=== PATIENT | female | born 1935 | race Caucasian/White ===

== ENCOUNTER → 2019-05-09 11:10 | Outpatient (CLI) | payer MEDICARE, OTHER, SELFPAY | PROVIDERS: Visit Provider Orthopaedic Surgery | DX: Z01.818 Encounter for other preprocedural examination (principal) | CPT/HCPCS: 93005; 93010 ==

== ENCOUNTER 2019-05-26 08:36 | Day surgery (SDC) | payer MEDICARE, OTHER, SELFPAY ==
[2019-05-13 08:57] VITALS: BMI 33.9
[2019-05-26] VITALS (14 sets, daily range): BP systolic 101–149; BP diastolic 44–69; PULSE 47–87; RESP 12–18; TEMP 36.4–37.2; O2SAT 93–98; BMI 33.6
--- NOTE | 2019-05-26 07:00 | DI.RAD.S_ITS ---
PROCEDURE: XR KNEE RT 1TO2V INDICATIONS: post op films TECHNIQUE: 2 view(s) of the knee acquired. COMPARISON: None. FINDINGS: Bones: Patient is status post knee joint arthroplasty. Hardware components are in expected positions. Visualized bony structures are intact. Soft tissues: Overlying postoperative changes are noted. IMPRESSION: Unexpected immediately postoperative appearance, status post total right knee arthroplasty Dictated by: Richard Campos M.D. on 05/26/2019 at 13:09 Approved by: Richard Campos M.D. on 05/26/2019 at 13:10
[2019-05-26] MEDS: ACETAMINOPHEN 325 MG TABLET 975 MG PO ×2 (09:33→20:48)
[2019-05-26] MEDS: PREGABALIN 75 MG CAPSULE PO (09:34)
[2019-05-26] MEDS: CELECOXIB 200 MG CAPSULE PO (09:34)
[2019-05-26] MEDS: LACTATED RINGERS 1,000 ML 42 ML IV ×2 (09:35→11:59)
--- NOTE | 2019-05-26 10:05 | PM.PREOP ---
Pre-operative Note Interval Note History & Physical reviewed/Exam performed by Physician: Yes Changes to H&P: No
[2019-05-26] MEDS: CEFAZOLIN 2 GM/100 ML FROZ.PIGGY IV (10:38)
--- NOTE | 2019-05-26 10:53 | P.OP_ITS ---
Operative Date/Time/Diagnoses Date of procedure: 05/26/19 Time of procedure: 12:15 Pre-op diagnosis: Right knee osteoarthritis Post-op diagnosis: same Procedure & Clinicians Procedure: Right total knee replacement Same procedure as scheduled: Yes Indications: The patient has had progressively worsening right knee pain with radiographic changes consistent with arthritis. Non-operative management has failed and the patient has requested total knee replacement. The risks, benefits and alternatives to surgery were discussed with the patient prior to proceeding. Risks discussed included, but were not limited to, failure to relieve pain, stiffness, infection, nerve damage, deep venous thrombosis, pulmonary embolism, stroke, coma, heart attack, permanent paralysis and , as well as the potential need for eventual revision of the prosthetic. Surgeon: Edd Davis Electronics Department Manager: Lucho Mehta Click Yes if Unassisted: No Anesthesia Type: General, Spinal and Local Operative Notes Closure Type: primary Specimen(s): none sent Prosthetic devices, grafts, tissues, transplants, or devices: Implants used in this procedure were manufactured by the [employer] system master and [employer] and included the BCS II Journey total knee replacement with a size 6 right cobalt chromium femur, a size 4 right non porous tibial base plate, a 10 mm cross- linked polyethylene tibial insert and a 35 mm oval Mary II patellar component. Applied: implant(s) Estimated Blood Loss (mL): 25 Blood products transfused: none Tourniquet time (min): 46 Procedure in detail: The patient was seen in the pre-operative area, where the patient identified the right knee as the operative site and this was marked with my initials. The patient received pre-operative antibiotics, and was taken to the operating room and placed on the operative table in the supine position. After satisfactory anesthesia, a real time analyst out was performed. The right leg was encircled with a tourniquet about the proximal thigh, and the leg was prepared from the toes to the tourniquet with ChloroPrep in the usual fashion and draped through sterile drapes. The leg was elevated and exsanguinated with Eschmark bandage and the tourniquet inflated to 250 mmHg pressure. The knee was approached through an approximately 18 cm incision centered over the patella and carried into the knee through a medial parapatellar arthrotomy. The anterior osteophytes and soft tissues were removed. The rotational landmarks of [place]'s line and the transepicondylar axis were marked on the femur with electrocautery, and intramedullary guide holes for the femur and tibia were created. The distal femoral cut was made in 6 degrees of valgus using the intramedullary guide at the primary cut setting. The proximal tibial cut was then made using the intramedullary guide, taking 9 mm of bone off the less involved side. The extension gap was checked and the rotation of the femoral component confirmed with the gap balancing system. The anterior, posterior and chamfer cuts were then made. The posterior osteophytes and soft tissues were then removed. The posterior capsule was injected with part of a mixture of 60 ml 0.25% Marcaine mixed with 20 ml Exparel and 4 mg of morphine for post-operative pain control. The remainder of this mixture was injected into the capsule and subcutaneous tissues during cement curing. The tibia was prepared with the rotation set by an extra medullary guide. Trial tibial and femoral components were then placed and the intercondylar notch cut through the femoral trial. Range of motion was 0-135 degrees, with good stability throughout the range. The patella was then cut to accommodate the patellar prosthetic. There was no need for a lateral release. The trials were then removed, and the femoral hole plugged with a bone plug. The bone was prepared with pulsatile lavage, and dried with a sponge. Cement was applied and the final prosthetics placed. Excess cement was removed during and after cement curing. After confirming there was no extruded cement posteriorly, the final tibial insert was placed. The knee was copiously irrigated and the tourniquet deflated. Hemostasis was obtained. The capsule was closed with interrupted # 2 polyester suture. The subcutaneous layer was closed with 3-0 Vicryl, and the skin with a running 3-0 V-Lock suture and SteriStrips. An Aquacel Ag dressing was applied and the patient was taken to recovery having tolerated the procedure well. Complications: none Condition: stable Disposition: PACU Plan for aftercare: The patient will be maintained on a standard total knee replacement protocol with weight bearing as tolerated. The patient will receive aspirin and sequential compression devices for DVT prophylaxis. The patient will be discharged home when safe for the home environment.
[2019-05-26] MEDS: TRANEXAMIC ACID 1,000 MG VIAL 1000 MG INJ (11:10)
--- NOTE | 2019-05-26 11:28 | SUR.OPER ---
Supine on padded OR bed. Pillow under head, arms secured on padded armboards <90 degree abduction. Safety belt across torso. Non-operative leg secured with tape over blanket over lower leg. Operative leg secured in DeMayo/Drew positioner. Foam padded brace at thigh of operative leg.
[2019-05-26] MEDS: MORPHINE 4 MG/ML INJ INJ (11:38)
[2019-05-26] MEDS: BUPIVACAINE LIPOSOME 266 MG/20 ML VIAL INJ (11:39)
[2019-05-26] MEDS: BUPIVACAINE 0.25% W/ EPI 30 ML VIAL 60 ML INJ (11:39)
--- NOTE | 2019-05-26 13:30 | PC.ADMIT ---
Admission Note: Pt arrived from PACU to room 213 at 1320. Alert and oriented x3. Oxygens sats 95% on RA. Aquacel dressing to right knee under GRETCHEN wrap C/D/I. Denies pain. Strong pulses bilaterally to feet. Able to move both extremities and partially lift off bed, can wiggle toes. Reports decreased sensation up to thighs. Oriented to call light/tv/bed controls. Instructed on need to use call light prior to getting out of bed and she acknowledged understanding. Call light within reach, bed alarm on. Cont. pulse oximetry in place. Denies need to void at this time. Taking in water without issue, denies nausea. The patient,Hollie Davis,83 y/o, was given written information regarding hospital policies, unit procedures and contact persons. Patient's smoking status: Former smoker. Vital Signs - 8 hr 05/26/19 08:59 05/26/19 12:25 05/26/19 12:30 Temperature 98.4 F 98.1 F 99 F Pulse Rate 62 87 81 Respiratory Rate 16 15 12 Blood Pressure 146/66 H 122/49 L 132/50 L Pulse Oximetry 95 95 93 05/26/19 12:35 05/26/19 12:45 05/26/19 12:55 Temperature 99 F 98.7 F 98.7 F Pulse Rate 80 72 70 Respiratory Rate 12 12 13 Blood Pressure 130/55 L 134/47 L 120/45 L Pulse Oximetry 93 95 95 05/26/19 13:05 Temperature 98.7 F Pulse Rate 63 Respiratory Rate 12 Blood Pressure 115/56 L Pulse Oximetry 95
[2019-05-26] MEDS: LACTATED RINGERS 1,000 ML 125 ML IV ×2 (14:10→22:06)
[2019-05-26] MEDS: DOCUSATE 100 MG CAPSULE PO (20:46)
[2019-05-26] MEDS: ASPIRIN EC 81 MG TABLET PO (20:46)
--- NOTE | 2019-05-26 23:56 | PC.NURSE ---
Addendum entered by Agata Florentino R.N. 05/27/19 06:25: Continues to deny all but mild pain. Declines pain med stating I'll let you know when I need something. IVF stopped as per MD order. Original Note: Patient is alert and oriented. Breath sounds CTA with RA sat of 94%; on continuous oximetry x 12h per epidural orders. HRR but bradycardic at 48 bpm. Denies nausea. BT hypoactive but abdomen is soft and states she has passed some flatus. Has been voiding using bedpan; denies dysuria or urgency but states she has been going frequently (earlier incontinence related to loss of sensation from epidural; now resolved). Able to turn with assistance to place pillows. Dressing (isra + Aquacel) to right knee is CDI. Wearing bilateral SCD's. CMS intact bilateral feet. States starting to have pain but not wanting to rate severity so stated I'll tell you like I told the others and say it's a 5; declines pain med but did accept ice packs to knee. Fall risk score is moderate and bed alarm activated for night; denies any previous falls.
[2019-05-27 05:47] VITALS: BP 108/68; PULSE 50; RESP 16; TEMP 36.3; O2SAT 95
[2019-05-27] MEDS: LEVOTHYROXINE 75 MCG TABLET PO (06:14)
[2019-05-27 06:39] LABS: Hematocrit 41.1 % (36-46); Hemoglobin 13.3 g/dL (12.0-16.0)
[2019-05-27 07:00] VITALS: BP 114/54; PULSE 50; RESP 16; TEMP 36.6; O2SAT 95
--- NOTE | 2019-05-27 07:18 | PM.PNPO.1 ---
Subjective Date Patient Seen: 05/27/19 Time Patient Seen: 07:18 Interval history: The patient reports she is comfortable. Exam Vital Signs (past 8 hours): - 05/26/19 23:38 05/27/19 05:47 Temperature 97.6 F 97.4 F L Pulse Rate 48 L 50 L Respiratory Rate 18 16 Blood Pressure 135/66 108/68 Pulse Oximetry 94 95 Oxygen Delivery Method Room Air Oxygen Flow Rate 0 Narrative Exam Narrative: Right knee wound is dressed with no drainage on the bandage. Calf is soft. Light touch and motion are intact in the right lower extremity. Objective Labs Result Diagrams: 05/27/19 06:17 Labs: Laboratory Results - last 24 hr 05/27/19 06:17 Hgb 13.3 Hct 41.1 Assessment & Plan Post-op Postoperative Procedures Operation Date: 05/26/19 10:45 Actual Procedures Side Surgeon p Total Knee Arthroplasty Right Edd Davis MD Postoperative day: 1 Postoperative status: doing well Postoperative status narrative: The patient is stable postoperative day 1 status post right total knee replacement. She did not receive physical therapy yesterday. She is quite concerned about going home ?too early? as her is somewhat infirm and not able to care for her well. Postoperative plan: routine post-op care and ambulate Postoperative plan narrative: She will work with physical therapy today. She likely will be ready for discharge tomorrow or potentially the next day. Time Spent With Patient less than 15 minutes Quality VTE Deep Vein Thrombosis/Pulmonary Embolism Present on Admission: No
[2019-05-27] MEDS: SODIUM CHLORIDE 0.9% FLUSH 10 ML IV ×3 (08:09→21:05)
[2019-05-27] MEDS: LISINOPRIL 20 MG TABLET PO (08:13)
[2019-05-27] MEDS: OXYCODONE IR 5 MG TABLET PO ×3 (08:13→14:32)
[2019-05-27] MEDS: DOCUSATE 100 MG CAPSULE PO ×2 (08:13→21:05)
[2019-05-27] MEDS: ASPIRIN EC 81 MG TABLET PO ×2 (08:14→21:05)
[2019-05-27] MEDS: MELOXICAM 7.5 MG TABLET 15 MG PO (08:14)
[2019-05-27] MEDS: ACETAMINOPHEN 325 MG TABLET 975 MG PO ×3 (08:14→21:05)
--- NOTE | 2019-05-27 09:33 | PC.NURSE ---
Addendum entered by Marlene Stevens R.N. 05/27/19 15:25: Spoke with Dr. Davis at 1523 and new orders rec'd. Original Note: Day Shift- POM bottle of Levothyroxine Sodium 75mcg retrieved from pharmacy and given back to pt per her request. Pt aware not to take her own medication while in the hospital per policy. Pt agreed and had taken scheduled dose of Levothyroxine this Am documented by night RN.
--- NOTE | 2019-05-27 10:02 | PT.IIE ---
Current Diagnoses Other chondrocalcinosis, unspecified site (05/26/19) Unilateral primary osteoarthritis, left knee (05/26/19) Surgery Performed Operation Date: 05/26/19 10:45 Actual Procedures p Total Knee Arthroplasty(Right) - Edd Davis MD Surgical History (Last Updated 05/13/19 @ 09:15 by Kerrie Gustafson, RN) History of colonoscopy (Acute) Hx of LASIK (Acute) Hx of appendectomy (Acute) Hx of bilateral cataract extraction (Acute) Hx of cholecystectomy (Acute) Hx of parathyroidectomy (Acute) Hx of tonsillectomy (Acute) Medical History (Last Updated 05/13/19 @ 09:15 by Kerrie Gustafson RN) BCC (basal cell carcinoma), face (Acute) Back pain (Acute) Elevated cholesterol (Acute) GERD (gastroesophageal reflux disease) (Acute) H/O: hysterectomy (Acute) HTN (hypertension) (Acute) Hiatal hernia (Acute) Hx of ectopic (Acute) Hx of vaginal delivery (Acute) Hypothyroidism (Acute) SCC (squamous cell carcinoma) (Acute) Tuberculosis (Acute) Physical Therapy Inpatient Evaluation/Re-Eval M1 PT/OT-IP Prior Functional Status Start: 05/26/19 14:15 Freq: NEEDED Status: Active Protocol: Document 05/27/19 10:02 AB (Rec: 05/27/19 13:39 AB [id number]) Medical Review Prior Functional Status Medical History Reviewed Yes Communication able to make needs known Mobility and Gait pt stated that she is independent with all mobilities and ambulation without AD Social History Household Members spouse Living Arrangements House Number of Floors (Floors) One Floor Number of Stairs To Enter/Railing? 3 steps to enter with B rails Home Environment High Toilet Walk in Shower Home Equipment Front Wheel Walker Straight Cane Raised Toilet Seat w/Armrests Shower Seat without Backrest Hand Held Shower M2 PT-IP Current Condition Start: 05/26/19 14:15 Freq: NEEDED Status: Active Protocol: Document 05/27/19 10:02 AB (Rec: 05/27/19 13:39 AB [id number]) Physical Therapy Current Condition Current Condition Evaluation Date 05/27/19 Treatment Diagnosis s/p R TKA; difficulty in walking Onset Date 05/27/19 Weight Bearing Status Weight Bearing Status Weight Bear as Tolerated M3 PT-IP Subjective Start: 05/26/19 14:15 Freq: NEEDED Status: Active Protocol: Document 05/27/19 10:02 AB (Rec: 05/27/19 13:39 AB [id number]) Subjective Physical Therapy Visit Type Type Initial Evaluation Visit Start Time 10:02 Visit Stop Time 10:42 Total Visit Minutes 40 Number of STITCHING MACHINE FEEDER OR OFFBEARER Visits 0 Physical Therapy Visit Comments Patient Comments pt agreeable to do PT Therapy Pain Assessment Pain When Pain Assessed At Rest Pain Present Pain Present Pain Reported Location Right Knee Intensity 5 Scale Used Numeric (1 - 10) Pain Management Techniques Re-positioning Timing of Activity with Medications M4 PT-IP Mobility and Gait Start: 05/26/19 14:15 Freq: NEEDED Status: Active Protocol: Document 05/27/19 10:02 AB (Rec: 05/27/19 13:39 AB [id number]) PT-Bed Mobility Assessment Supine to Sit Supine to Sit Standby Assistance Scooting Scooting to Edge of Bed Standby Assistance PT-Transfer Assessment Sit to and From Stand Sit to and from Stand Moderate Assistance 1 Person Assistance Use of Upper Extremities Equipment Transfer Assistive Device Gait Belt Front Wheeled Walker Orthotic/Prosthetic Devices or Brace: No Transfers Transfer Destination Chair Bedside Commode Transfer Technique Stand Step Pivot Transfer Ability Level of Assist Moderate Assistance 1 Person Assistance Use of Upper Extremities Comments Mobility Comments pt completed sit to stand from EOB mod A. pt stated that she felt like she is urinating . assisted pt to sit down on bed again and bedside commode positioned next to pt. pt completed transfer to the bedside commode using FWW mod A and cues. pt. completed sit to stand from bedside commode mod A and cues and required min to mod A to maintain standing using FWW. NAC assisted with brief management and hygiene care. Gait Assessment Gait Gait Assistance Required: Moderate Assistance 1 Person Assist Distance (Feet) 10 Able to Maintain Weight Bearing Status Yes During Gait Assistive Devices Assistive Device Gait Belt Front Wheeled Walker Orthotic/Prosthetic Devices or Brace: No Gait Deviations General Gait Pattern Antalgic Decreased Stride Length Decreased Feet Clearance Factors Limiting Gait Function Factors Limiting Gait Function Decreased Activity Tolerance Decreased Strength Pain Poor Balance Poor Safety Awareness Comments Gait Comments pt ambulated ~ 10 ft using FWW mod A and cues. pt requested to brush her teeth. pt ambulated towards the sink . NAC took over and assisted pt. PT-Balance Assessment Sitting Balance and Reactions Static Sitting Balance Ability Good Dynamic Sitting Balance Ability Good Standing Balance and Reactions Static Standing Balance Ability Fair Dynamic Standing Balance Ability Fair Device Used FWW M5 PT-IP Objective Assessments Start: 05/26/19 14:15 Freq: NEEDED Status: Active Protocol: Document 05/27/19 10:02 AB (Rec: 05/27/19 13:39 AB [id number]) Orientation Orientation/Cognition Level of Alertness Alert Orientation Name Age Place Situation Language Function Ability No Deficits Noted Safety Awareness Understands Safety Issues Memory Description No Deficits Noted Gross Range of Motion Lower Extremity ROM Assessment Right Impaired Impairments R knee flexion: ~ 70 deg Strength Lower Extremity Strength Assessment Right Impaired Hip 3+/5 Knee 3+/5 Sensation Assessment Sensation Gross Sensation WNL Muscle Tone Muscle Tone WNL Yes M6 PT-IP Treatment Start: 05/26/19 14:15 Freq: NEEDED Status: Active Protocol: Document 05/27/19 10:02 AB (Rec: 05/27/19 13:39 AB [id number]) Physical Therapy Treatment Exercises Exercises Heel Slides Straight Leg Raises Education Education Provided Precautions Weight Bearing Status Post-Op Packet Safety M7 PT-IP Assessment and Plan Start: 05/26/19 14:15 Freq: NEEDED Status: Active Protocol: Document 05/27/19 10:02 AB (Rec: 05/27/19 13:39 AB [id number]) PT Summary Assessment and Plan Potential Rehabilitation Potential Good Status of Condition at Evaluation Stable Summary Impairments Pain ROM Strength Balance Coordination Sensation Tone Cognition Bed Mobility Transfers Gait Activity Tolerance Assessment Summary pt requiring mod A and cues with mobility and will likely improve during hospital stay. pt plans to go home and spouse to assist her. pt stated that she is scheduled for outpt PT. will continue to assess progress. Goals Bed Mobility Goal Independent Transfer Goal Standby Assistance Front Wheeled Walker Gait Goal Standby Assistance Front Wheel Walker Gait Distance 150 Other Goals up/down 3 steps B rails SBA Days to Meet Goals 5 Frequency of Treatment Frequency Of Treatment Twice a Day Treatment Plan Physical Therapy Treatment Plan Bed Mobility Training Transfer Training Gait Training Therapeutic Exercise Balance Retraining Post Op Education Discharge Planning Hot or Cold Pack Neuromuscular Re-ed Coordination Retraining Manual Therapy Other Recommendations and Next Treatment ambulation Focus Recommendations To Nursing Amount of Assist Needed 1 Person Assist Discharge Recommendations PT Discharge Recommendations Home with Assistance Outpatient PT
[2019-05-27 11:00] VITALS: BP 146/63; PULSE 60; RESP 16; TEMP 36.7; O2SAT 96
--- NOTE | 2019-05-27 11:44 | CM.DANOTE ---
DCP: Case received, EMR reviewed and met with patient. Introduced self and role. Was able to obtain baseline health information and living situation from patient. DCP template assessment completed with information currently available. Patient is an 83 year old female who admitted yesterday morning to the care of the orthopedic team. PCP: Dr. Broussard Payer: confirmed: Medicare/[employer] Preferred. Patient came to the hospital for a surgical procedure. She had a left total knee arthroplasty. Met with her in her room. Patient alert and oriented. Lives in [place] with her spouse, Juanito. She stated that she has been independent before surgery, driving, does not use cane or walker. She mentioned that she has three steps going into her home. Confirmed Dr. Broussard as her primary MD. Stated you are the 6th person to ask me that. Let her know, that her primary was not listed on form. P: DCP to continue to follow, will collaborate with physical therapy team to see how she is progressing. Jolanta Berger RN/Route Supervisor
[2019-05-27] MEDS: HYDROMORPHONE 0.5 MG INJ IV (12:43)
--- NOTE | 2019-05-27 15:35 | PT.IPTN ---
Current Diagnoses Other chondrocalcinosis, unspecified site (05/26/19) Unilateral primary osteoarthritis, left knee (05/26/19) Surgery Performed Operation Date: 05/26/19 10:45 Actual Procedures p Total Knee Arthroplasty(Right) - Edd Davis MD Physical Therapy Treatment Note M2 PT-IP Current Condition Start: 05/26/19 14:15 Freq: NEEDED Status: Active Protocol: Document 05/27/19 10:02 AB (Rec: 05/27/19 13:39 AB [id number]) Physical Therapy Current Condition Current Condition Evaluation Date 05/27/19 Treatment Diagnosis s/p R TKA; difficulty in walking Onset Date 05/27/19 Weight Bearing Status Weight Bearing Status Weight Bear as Tolerated M3 PT-IP Subjective Start: 05/26/19 14:15 Freq: NEEDED Status: Active Protocol: Document 05/27/19 14:15 CLB (Rec: 05/27/19 15:34 CLB [id number]) Subjective Physical Therapy Visit Type Type Treatment Note Visit Start Time 14:15 Visit Stop Time 14:38 Total Visit Minutes 23 Notes Pt on toilet at start of session Number of TRUCK ENGINE ASSEMBLER Visits 1 Physical Therapy Visit Comments Patient Comments pt agreeable to do PT Therapy Pain Assessment Pain When Pain Assessed During Mobility Location Right Knee Intensity 8 Scale Used Numeric (1 - 10) Pain Management Techniques Apply Cold Elevation Modification of Treatment Re-positioning Timing of Activity with Medications M4 PT-IP Mobility and Gait Start: 05/26/19 14:15 Freq: NEEDED Status: Active Protocol: Document 05/27/19 14:15 CLB (Rec: 05/27/19 15:34 CLB [id number]) PT-Bed Mobility Assessment Sit to Supine Sit to Supine Minimal Assistance 1 Person Assistance PT-Transfer Assessment Sit to and From Stand Sit to and from Stand Contact Guard Assistance Use of Upper Extremities Equipment Transfer Assistive Device Gait Belt Front Wheeled Walker Orthotic/Prosthetic Devices or Brace: No Transfers Transfer Destination Bed Toilet Transfer Technique Stand Step Pivot Transfer Ability Level of Assist Contact Guard Assistance Minimal Assistance Comments Mobility Comments Pt required CGA for for sit- stand from toilet but Min A with RLE getting into bed. Gait Assessment Gait Gait Assistance Required: Contact Guard Assist 1 Person Assist Distance (Feet) 20 Able to Maintain Weight Bearing Status Yes During Gait Assistive Devices Assistive Device Gait Belt Front Wheeled Walker Orthotic/Prosthetic Devices or Brace: No Gait Deviations General Gait Pattern Antalgic Decreased Stride Length Decreased Feet Clearance Factors Limiting Gait Function Factors Limiting Gait Function Decreased Activity Tolerance Decreased Strength Pain Poor Balance Poor Safety Awareness Comments Gait Comments Pt with increased pain with ambulation but was able to ambulate ~20ft with FWW/CGA M5 PT-IP Objective Assessments Start: 05/26/19 14:15 Freq: NEEDED Status: Active Protocol: Document 05/27/19 10:02 AB (Rec: 05/27/19 13:39 AB [id number]) Orientation Orientation/Cognition Level of Alertness Alert Orientation Name Age Place Situation Language Function Ability No Deficits Noted Safety Awareness Understands Safety Issues Memory Description No Deficits Noted Gross Range of Motion Lower Extremity ROM Assessment Right Impaired Impairments R knee flexion: ~ 70 deg Strength Lower Extremity Strength Assessment Right Impaired Hip 3+/5 Knee 3+/5 Sensation Assessment Sensation Gross Sensation WNL Muscle Tone Muscle Tone WNL Yes M6 PT-IP Treatment Start: 05/26/19 14:15 Freq: NEEDED Status: Active Protocol: Document 05/27/19 14:15 CLB (Rec: 05/27/19 15:34 CLB [id number]) Physical Therapy Treatment Exercises Exercises Ankle Pumps Quad Sets Heel Slides Straight Leg Raises Education Education Provided Weight Bearing Status Safety M7 PT-IP Assessment and Plan Start: 05/26/19 14:15 Freq: NEEDED Status: Active Protocol: Document 05/27/19 14:15 CLB (Rec: 05/27/19 15:34 CLB [id number]) PT Summary Assessment and Plan Summary Impairments Pain ROM Strength Balance Coordination Sensation Tone Cognition Bed Mobility Transfers Gait Activity Tolerance Assessment Summary Pt improved with sit<>stand and gait requiring CGA. Pt c/o pain 06/21 and didn't feel she was getting good pain control with meds. Goals Bed Mobility Goal Independent Transfer Goal Standby Assistance Front Wheeled Walker Gait Distance 150 Other Goals up/down 3 steps B rails SBA Frequency of Treatment Frequency Of Treatment Twice a Day Treatment Plan Physical Therapy Treatment Plan Bed Mobility Training Transfer Training Gait Training Therapeutic Exercise Balance Retraining Post Op Education Discharge Planning Hot or Cold Pack Neuromuscular Re-ed Coordination Retraining Manual Therapy Other Recommendations and Next Treatment ambulation, stair training Focus with and ther ex. Recommendations To Nursing Amount of Assist Needed 1 Person Assist Discharge Recommendations PT Discharge Recommendations Home with Assistance Outpatient PT
[2019-05-27 16:10] VITALS: BP 133/62; PULSE 55; RESP 16; TEMP 36.6; O2SAT 97
[2019-05-27] MEDS: OXYCODONE IR 10 MG TABLET PO ×2 (17:32→21:03)
[2019-05-27] MEDS: LORazepam 0.5 MG TABLET PO (21:02)
[2019-05-27] MEDS: OXYCODONE ER 10 MG TAB PO (21:45)
--- NOTE | 2019-05-27 23:40 | PC.NURSE ---
Evening Shift Note- patient complains of 10/10 pain with Oxycodone 10mg PO Q3H PRN providinbg moderate control for approx 1.5 hours. Called on-call surgeon Dr. Knight. Recieved new orders for Oxycontin 10mg PO BID and Oxycodone 5-15mg PO Q3H PRN. Explained new orders to patient. Safety measures in place. call arshad and phone within reach. will continue to monitor.
[2019-05-28 00:05] VITALS: BP 154/68; PULSE 64; RESP 18; TEMP 36.7; O2SAT 96
[2019-05-28] MEDS: OXYCODONE IR 10 MG TABLET 15 MG PO ×3 (00:45→06:38)
--- NOTE | 2019-05-28 00:49 | PC.NURSE ---
Addendum entered by Agata Florentino R.N. 05/28/19 06:40: Complains of 6/10 pain; medicated with Oxycodone 15mg and ice applied to knee Addendum entered by Agata Florentino R.N. 05/28/19 03:33: States pain now at 8/10 so medicated with 15mg of Oxycodone Original Note: Patient is alert and oriented. Breath sounds CTA with RA sat of 96%. HRR. BP trends high with current reading of 154/68. Denies nausea. BT present and is passing flatus. Denies dysuria, frequency or urgency. Gets up to [facility] with walker and 1 assist; RURAL MAIL CARRIER reports she did well with transfer but needed help to get leg in/out of bed. Complains of 5/10 right knee pain so initially medicated with 10mg but then patient called within 15 minutes and requested the additional 5mg for total of 15mg; states she does not want to be wakened when pain meds are due. Dressing to right knee is intact with small spots sanguinous drainage noted toward top of dressing; knee is swollen. CMS intact. Declines use of SCD's tonight as they kept her awake last night despite reminder of DVT prevention; verbalizes understanding and reminded to ankle wave when awake.
[2019-05-28 06:30] VITALS: BP 150/59; PULSE 63; RESP 15; TEMP 36.8; O2SAT 96
[2019-05-28] MEDS: LEVOTHYROXINE 75 MCG TABLET PO (06:38)
[2019-05-28 07:30] VITALS: BP 157/65; PULSE 60; RESP 16; TEMP 36.8; O2SAT 94
--- NOTE | 2019-05-28 07:48 | PM.PNPO.1 ---
Subjective Date Patient Seen: 05/28/19 Time Patient Seen: 07:49 Interval history: Pain is been moderate to severe. Denies fever chills. No nausea vomiting. She feels very uncomfortable going home today as her is limited in his ability to assist her. Exam Vital Signs (past 8 hours): - 05/28/19 00:05 05/28/19 06:30 Temperature 98.1 F 98.2 F Pulse Rate 64 63 Respiratory Rate 18 15 Blood Pressure 154/68 H 150/59 H Pulse Oximetry 96 96 Oxygen Delivery Method Room Air Oxygen Flow Rate 0 Narrative Exam Narrative: 83-year-old female resting comfortably in bed in no apparent distress. Right knee dressing is clean, dry and intact. Right leg is warm and dry. Calf is soft. Negative Homans. Sensation grossly intact to light touch distal right lower extremity. Motor function is intact distally. Objective Labs Result Diagrams: 05/27/19 06:17 Assessment & Plan Post-op Postoperative Procedures Operation Date: 05/26/19 10:45 Actual Procedures Side Surgeon p Total Knee Arthroplasty Right Edd Davis MD Postop day 2 status post right total knee arthroplasty. Continue to mobilize with physical therapy. We will work on pain control today as well. Discharge home tomorrow. Quality VTE Deep Vein Thrombosis/Pulmonary Embolism Present on Admission: No
[2019-05-28] MEDS: SODIUM CHLORIDE 0.9% FLUSH 10 ML IV ×2 (09:25→21:50)
[2019-05-28] MEDS: DOCUSATE 100 MG CAPSULE PO ×2 (09:26→21:46)
[2019-05-28] MEDS: OXYCODONE ER 10 MG TAB PO ×2 (09:26→21:46)
[2019-05-28] MEDS: ACETAMINOPHEN 325 MG TABLET 975 MG PO ×3 (09:27→21:47)
[2019-05-28] MEDS: MELOXICAM 7.5 MG TABLET 15 MG PO (09:27)
[2019-05-28] MEDS: LISINOPRIL 20 MG TABLET PO (09:27)
[2019-05-28] MEDS: ASPIRIN EC 81 MG TABLET PO ×2 (09:27→21:46)
[2019-05-28] MEDS: OXYCODONE IR 5 MG TABLET 15 MG PO ×4 (09:35→18:45)
--- NOTE | 2019-05-28 10:30 | PT.IPTN ---
Current Diagnoses Other chondrocalcinosis, unspecified site (05/26/19) Unilateral primary osteoarthritis, left knee (05/26/19) Surgery Performed Operation Date: 05/26/19 10:45 Actual Procedures p Total Knee Arthroplasty(Right) - Edd Davis MD Physical Therapy Treatment Note M2 PT-IP Current Condition Start: 05/26/19 14:15 Freq: NEEDED Status: Active Protocol: Document 05/27/19 10:02 AB (Rec: 05/27/19 13:39 AB [id number]) Physical Therapy Current Condition Current Condition Evaluation Date 05/27/19 Treatment Diagnosis s/p R TKA; difficulty in walking Onset Date 05/27/19 Weight Bearing Status Weight Bearing Status Weight Bear as Tolerated M3 PT-IP Subjective Start: 05/26/19 14:15 Freq: NEEDED Status: Active Protocol: Document 05/28/19 10:30 GGD (Rec: 05/28/19 12:05 GGD [id number]) Subjective Physical Therapy Visit Type Type Treatment Note Visit Start Time 10:00 Visit Stop Time 10:30 Total Visit Minutes 30 Number of COPER HAND Visits 2 Physical Therapy Visit Comments Patient Comments Pt willing to work with PT. Therapy Pain Assessment Pain When Pain Assessed During Mobility Pain Present Pain Present Pain Reported Location Right Knee Intensity 6 Scale Used Numeric (1 - 10) Pain Management Techniques Apply Cold Re-positioning Timing of Activity with Medications M4 PT-IP Mobility and Gait Start: 05/26/19 14:15 Freq: NEEDED Status: Active Protocol: Document 05/28/19 10:30 GGD (Rec: 05/28/19 12:05 GGD [id number]) PT-Bed Mobility Assessment Supine to Sit Supine to Sit Standby Assistance Contact Guard Assistance Scooting Scooting to Edge of Bed Standby Assistance PT-Transfer Assessment Sit to and From Stand Sit to and from Stand Contact Guard Assistance Use of Upper Extremities Equipment Transfer Assistive Device Gait Belt Front Wheeled Walker Orthotic/Prosthetic Devices or Brace: No Transfers Transfer Destination Bed Toilet Transfer Technique Stand Step Pivot Transfer Ability Level of Assist Contact Guard Assistance Minimal Assistance Gait Assessment Gait Gait Assistance Required: Contact Guard Assist Distance (Feet) 30 Able to Maintain Weight Bearing Status Yes During Gait Assistive Devices Assistive Device Gait Belt Front Wheeled Walker Orthotic/Prosthetic Devices or Brace: No Gait Deviations General Gait Pattern Antalgic Decreased Stride Length Decreased Feet Clearance Factors Limiting Gait Function Factors Limiting Gait Function Decreased Activity Tolerance Decreased Strength Pain Poor Balance Poor Safety Awareness M5 PT-IP Objective Assessments Start: 05/26/19 14:15 Freq: NEEDED Status: Active Protocol: Document 05/27/19 10:02 AB (Rec: 05/27/19 13:39 AB [id number]) Orientation Orientation/Cognition Level of Alertness Alert Orientation Name Age Place Situation Language Function Ability No Deficits Noted Safety Awareness Understands Safety Issues Memory Description No Deficits Noted Gross Range of Motion Lower Extremity ROM Assessment Right Impaired Impairments R knee flexion: ~ 70 deg Strength Lower Extremity Strength Assessment Right Impaired Hip 3+/5 Knee 3+/5 Sensation Assessment Sensation Gross Sensation WNL Muscle Tone Muscle Tone WNL Yes M6 PT-IP Treatment Start: 05/26/19 14:15 Freq: NEEDED Status: Active Protocol: Document 05/28/19 10:30 GGD (Rec: 05/28/19 12:05 GGD [id number]) Physical Therapy Treatment Exercises Exercises Ankle Pumps Quad Sets Heel Slides Straight Leg Raises Seated Knee Flexion/Extension M7 PT-IP Assessment and Plan Start: 05/26/19 14:15 Freq: NEEDED Status: Active Protocol: Document 05/28/19 10:30 GGD (Rec: 05/28/19 12:05 GGD [id number]) PT Summary Assessment and Plan Summary Assessment Summary Pt is improving slowly. She was able to progress gait distance with heavy use of UE on FWW. She was slow moving with bed mobility. Frequency of Treatment Frequency Of Treatment Twice a Day Treatment Plan Physical Therapy Treatment Plan Bed Mobility Training Transfer Training Gait Training Therapeutic Exercise Balance Retraining Post Op Education Discharge Planning Hot or Cold Pack Neuromuscular Re-ed Coordination Retraining Manual Therapy Other Recommendations and Next Treatment ambulation, stair training Focus with and ther ex. Recommendations To Nursing Amount of Assist Needed 1 Person Assist Discharge Recommendations PT Discharge Recommendations Home with Assistance Outpatient PT
[2019-05-28 11:00] VITALS: BP 149/72; PULSE 62; RESP 16; O2SAT 92
--- NOTE | 2019-05-28 11:56 | PC.NURSE ---
Day Shift- Pt A&OX4, anxious during conversations, Explained use of prn Ativan that is available at any time. Plan to ge given 30 mins prior to afternoon PT session. PRN Oxycodone 15mg given at 0940 for 5-6/10 pain, to right knee, proximal to dressing extending to back of knee. Ice pack X2 used intermittently. Pillow placed under right leg below knee. SCD's placed back on, pt performing ankle waves. Right knee incision covered with intact aquacel dressing that has small spots of sang drainage shadowing to proximal end of dressing. OOB 1PA to C this AM, Sat in chair after PT session around 1015. Reminded pt to use call light for assistance, pt states she doesn't want to bother the staff. Again reminded pt that is what us staff are here for, to assist with her needs.
--- NOTE | 2019-05-28 13:33 | CM.DPC ---
DCP: continued: case received and discussed in Team Rounds. Ortho PA Tyson was in earlier this morning and his notes indicate he is planning to d/c pt to home setting tomorrow. KNIFE SETTER GRINDER MACHINE Marla stated that she would be working with pt later today. OT is not ordered as per usual protcol with SNO for planned knee surgeries. UR Team RN Yojana and groundskeeper Tammy noted that the admission status remained SDC or OUTPT with Bed and planned to pursue this futher with the orthopedic team. They explained that pt may have to leave the hospital today as she has overstayed the timeframe for this admission status. Met now with pt to go over her d/c plan. Pt says she is planning to go home tomorrow, that's what the orthopedic person this morning told me. Her does not drive as he is legally blind but in all other ways he is very healthy and very able to help me. She has a daughter Diamante who lives in [place] and works but is supportive and would be able to spend the night if she asked her to but says she has seen no need for that. She also reports she has helpful neighbors. She plans OUTPT PT at PT in [place]. OF NOTE: UR Cyber Security Analyst Tammy reports that she has discussed this case with Dr. Davis and with Administration. The orthopedic team plan to d/c pt to home tomorrow morning. Tammy will update pt re this now. P: will see pt early tomorrow and assist to facilitate the d/c to home as planned.
[2019-05-28] MEDS: LORazepam 0.5 MG TABLET PO (14:02)
--- NOTE | 2019-05-28 14:55 | PT.IPTN ---
Current Diagnoses Other chondrocalcinosis, unspecified site (05/26/19) Unilateral primary osteoarthritis, left knee (05/26/19) Surgery Performed Operation Date: 05/26/19 10:45 Actual Procedures p Total Knee Arthroplasty(Right) - Edd Davis MD Physical Therapy Treatment Note M2 PT-IP Current Condition Start: 05/26/19 14:15 Freq: NEEDED Status: Active Protocol: Document 05/27/19 10:02 AB (Rec: 05/27/19 13:39 AB [id number]) Physical Therapy Current Condition Current Condition Evaluation Date 05/27/19 Treatment Diagnosis s/p R TKA; difficulty in walking Onset Date 05/27/19 Weight Bearing Status Weight Bearing Status Weight Bear as Tolerated M3 PT-IP Subjective Start: 05/26/19 14:15 Freq: NEEDED Status: Active Protocol: Document 05/28/19 14:55 GGD (Rec: 05/28/19 15:31 GGD [id number]) Subjective Physical Therapy Visit Type Type Treatment Note Visit Start Time 14:30 Visit Stop Time 14:55 Total Visit Minutes 25 Number of VAMP STRAP IRONER Visits 3 Physical Therapy Visit Comments Patient Comments Pt states she having more pain . Therapy Pain Assessment Pain When Pain Assessed During Mobility Pain Present Pain Present Pain Reported Location Right Knee Intensity 8 Scale Used Numeric (1 - 10) Pain Management Techniques Apply Cold Re-positioning Timing of Activity with Medications M4 PT-IP Mobility and Gait Start: 05/26/19 14:15 Freq: NEEDED Status: Active Protocol: Document 05/28/19 14:55 GGD (Rec: 05/28/19 15:31 GGD [id number]) PT-Bed Mobility Assessment Supine to Sit Supine to Sit Standby Assistance Contact Guard Assistance Sit to Supine Sit to Supine Minimal Assistance 1 Person Assistance Scooting Scooting to Edge of Bed Standby Assistance PT-Transfer Assessment Sit to and From Stand Sit to and from Stand Contact Guard Assistance Use of Upper Extremities Equipment Transfer Assistive Device Gait Belt Front Wheeled Walker Orthotic/Prosthetic Devices or Brace: No Transfers Transfer Destination Bed Transfer Ability Level of Assist Contact Guard Assistance Minimal Assistance Gait Assessment Gait Gait Assistance Required: Contact Guard Assist Distance (Feet) 30 Able to Maintain Weight Bearing Status Yes During Gait Assistive Devices Assistive Device Gait Belt Front Wheeled Walker Orthotic/Prosthetic Devices or Brace: No Gait Deviations General Gait Pattern Antalgic Decreased Stride Length Decreased Feet Clearance Factors Limiting Gait Function Factors Limiting Gait Function Decreased Activity Tolerance Decreased Strength Pain Poor Balance Poor Safety Awareness Stair Climbing Assessment Evaluation Level of Assist On Stairs Contact Guard Assistance Devices Stair Climbing Assistive Devices Left Railing Right Railing Technique/Endurance Stair Climbing Direction Ascend and Descend Stair Climbing Technique Step to Step Number of Steps Climbed 3 Stair Climbing Set # Repetitions (reps) 1 M5 PT-IP Objective Assessments Start: 05/26/19 14:15 Freq: NEEDED Status: Active Protocol: Document 05/27/19 10:02 AB (Rec: 05/27/19 13:39 AB [id number]) Orientation Orientation/Cognition Level of Alertness Alert Orientation Name Age Place Situation Language Function Ability No Deficits Noted Safety Awareness Understands Safety Issues Memory Description No Deficits Noted Gross Range of Motion Lower Extremity ROM Assessment Right Impaired Impairments R knee flexion: ~ 70 deg Strength Lower Extremity Strength Assessment Right Impaired Hip 3+/5 Knee 3+/5 Sensation Assessment Sensation Gross Sensation WNL Muscle Tone Muscle Tone WNL Yes M6 PT-IP Treatment Start: 05/26/19 14:15 Freq: NEEDED Status: Active Protocol: Document 05/28/19 14:55 GGD (Rec: 05/28/19 15:31 GGD [id number]) Physical Therapy Treatment Exercises Exercises Ankle Pumps Quad Sets Heel Slides M7 PT-IP Assessment and Plan Start: 05/26/19 14:15 Freq: NEEDED Status: Active Protocol: Document 05/28/19 14:55 GGD (Rec: 05/28/19 15:31 GGD [id number]) PT Summary Assessment and Plan Summary Assessment Summary Pt able to progress mobility slowly. She was safe and stable with stair mobility. Her gait was limited by C/O pain. Pt D/C home when medically stable. Frequency of Treatment Frequency Of Treatment Twice a Day Treatment Plan Physical Therapy Treatment Plan Bed Mobility Training Transfer Training Gait Training Therapeutic Exercise Balance Retraining Post Op Education Discharge Planning Hot or Cold Pack Neuromuscular Re-ed Coordination Retraining Manual Therapy Recommendations To Nursing Amount of Assist Needed 1 Person Assist Discharge Recommendations PT Discharge Recommendations Home with Assistance Outpatient PT
[2019-05-28 15:21] VITALS: BP 131/65; PULSE 62; RESP 18; TEMP 37.5; O2SAT 92
[2019-05-28] MEDS: CALCIUM CARBONATE 500 MG TAB 1000 MG PO (15:47)
[2019-05-28 19:20] VITALS: BP 139/64; PULSE 77; RESP 18; TEMP 36.5; O2SAT 93
[2019-05-28 21:22] VITALS: BMI 33.6
[2019-05-28 22:12] VITALS: BMI 33.6
[2019-05-29] MEDS: OXYCODONE IR 5 MG TABLET 15 MG PO ×2 (05:26→11:10)
[2019-05-29] MEDS: LEVOTHYROXINE 75 MCG TABLET PO (05:26)
--- NOTE | 2019-05-29 05:36 | PC.NURSE ---
Patient awake and oriented at shift change and stated pain in knee only 1/10 and did not want to be woke for pain meds during the night. Has been sleeping entire shift. Now awakened for vitals/assessment and expresses appreciation for good night sleep. Is alert and oriented. Breath sounds diminished at bases but CTA with RA sat of 95%. HRR. Denies nausea. BT present and is passing flatus. Denies dysuria, frequency or urgency and has been continent. Able to turn self in bed but needs assist to get out of bed and then walks to bathroom with walker and 1 assist. Can lift right leg slightly off bed but with difficulty. Aquacel dressing intact with no new drainage. Continued edema in right leg around knee. Complains of 5/10 pain and requests 15mg of Oxycodone; medicated as requested and ice applied. CMS is intact. Wearing bilateral SCD's. Fall risk score is moderate; bed alarm is activated. Plan is for discharge later today.
[2019-05-29 05:43] VITALS: BP 132/57; PULSE 66; RESP 17; TEMP 37; O2SAT 95
[2019-05-29 07:35] VITALS: BP 140/71; PULSE 60; RESP 16; TEMP 36.7; O2SAT 93
[2019-05-29 08:13] VITALS: BP 140/75
[2019-05-29] MEDS: ACETAMINOPHEN 325 MG TABLET 975 MG PO (08:13)
[2019-05-29] MEDS: ASPIRIN EC 81 MG TABLET PO (08:13)
[2019-05-29] MEDS: LISINOPRIL 20 MG TABLET PO (08:13)
[2019-05-29] MEDS: OXYCODONE ER 10 MG TAB PO (08:13)
[2019-05-29] MEDS: SODIUM CHLORIDE 0.9% FLUSH 10 ML IV (08:14)
[2019-05-29] MEDS: DOCUSATE 100 MG CAPSULE PO (08:14)
[2019-05-29] MEDS: KETOROLAC 15 MG/ML VIAL IV (08:16)
--- NOTE | 2019-05-29 08:19 | PM.DS.1 ---
History of Present Illness Date Patient Seen: 05/29/19 Time Patient Seen: 08:19 Chief complaint: [id number] Left Total Knee Arthroplasty Narrative: The patient has had progressively worsening right knee pain with radiographic changes consistent with arthritis. Non-operative management has failed and the patient has requested total knee replacement. The risks, benefits and alternatives to surgery were discussed with the patient prior to proceeding. Risks discussed included, but were not limited to, failure to relieve pain, stiffness, infection, nerve damage, deep venous thrombosis, pulmonary embolism, stroke, coma, heart attack, permanent paralysis and , as well as the potential need for eventual revision of the prosthetic. Discharge Providers Date of admission: 05/26/19 08:36 Discharge Date: 05/29/19 Consults: 05/26/19 13:22 Consult to Discharge Planning Routine Comment: Consult to Physical Therapy Evaluate & Treat Comment: Physician Instructions: postop TKA protocol Discharge provider: Breann Tiwari PA-C Summary Discharge Diagnosis: s/p right total knee arthroplasty Thyroid disease Hypertension Hospital Course: Hollie was admitted for right total knee arthroplasty with Dr. Davis. Patient had significant pain control issues throughout her stay. On postop day 3. Patient was ready to go home. She was taking OxyContin 10 mg b.i.d., and oxycodone 15 mg every 3 hours for pain control. She was provided an IV dose of Toradol on postop day 3. He is eating and voiding without difficulty or assistance. She has worked with physical therapy throughout her stay. ASA for DVT prophylaxis. Status at Discharge Functional status at discharge: uses cane/walker Exam Vital Signs (past 8 hours): - 05/29/19 05:43 05/29/19 07:35 05/29/19 08:13 Temperature 98.6 F 98.0 F Pulse Rate 66 60 Respiratory Rate 17 16 Blood Pressure 132/57 L 140/71 140/75 Pulse Oximetry 95 93 Oxygen Delivery Method Room Air Oxygen Flow Rate 0 Narrative Exam Narrative: Patient is sitting up in bed in no acute distress. She is alert and oriented x3. Dressing on right knee is CDI. Calves are soft, compressible, nontender bilaterally. Sensation intact to light touch throughout bilateral lower extremities. She is able to actively dorsiflex and plantar flex. Pulses are symmetrical. Her pain is tolerable this morning. Objective Labs Result Diagrams: 05/27/19 06:17 Discharge Plan Discharge Plan Patient Disposition: Home Discharge Med Rec/Prescriptions Prescriptions: New acetaminophen 325 mg Tablet 975 mg PO TID Qty: 60 RF: 0 aspirin 81 mg Tablet,Delayed Release (Dr/Ec) 81 mg PO BID Qty: 60 RF: 0 docusate sodium [DOK] 100 mg Capsule 100 mg PO BID Qty: 60 RF: 0 oxycodone [OxyContin] 10 mg Tablet,Oral Only,Ext.Rel.12 Hr 10 mg PO BID Qty: 20 RF: 0 oxycodone 5 mg Tablet 5 mg PO Q3HR PRN (Reason: Pain, Moderate (4-6)) Qty: 60 RF: 0 Continued lisinopril 20 mg Tablet 20 mg PO DAILY RF: 0 famotidine 20 mg Tablet 20 mg PO DAILY RF: 0 Excedrin Extra Strength 250-250-65 mg Tablet 2 - 3 tab PO DAILY PRN (Reason: Pain) RF: 0 levothyroxine 75 mcg Capsule 75 mcg PO DAILY RF: 0 Follow up/Referrals: Edd Davis MD [Physician] - Provider Discharge Instructions Cold/Heat Therapy: as needed Skin/Wound/Dressing Care Report to your healthcare provider any signs of infection, such as:: chills, fever and increased pain Dressing: leave in place until appointment Visit Report/Discharge Packet Instructions: DI for Knee Replacement, How to Prevent Falls, DI for Postoperative Pain, Oxycodone, Oxycodone, Slow Release (By mouth) Stand Alone Forms: Surgery Discharge Discharge Data Attending Provider: Edd Davis Admit Date/Time: 05/26/19 08:36 Quality VTE Deep Vein Thrombosis/Pulmonary Embolism Present on Admission: No
--- NOTE | 2019-05-29 09:25 | PT.IPTN ---
Current Diagnoses Other chondrocalcinosis, unspecified site (05/26/19) Unilateral primary osteoarthritis, left knee (05/26/19) Surgery Performed Operation Date: 05/26/19 10:45 Actual Procedures p Total Knee Arthroplasty(Right) - Edd Davis MD Physical Therapy Treatment Note M2 PT-IP Current Condition Start: 05/26/19 14:15 Freq: NEEDED Status: Active Protocol: Document 05/27/19 10:02 AB (Rec: 05/27/19 13:39 AB [id number]) Physical Therapy Current Condition Current Condition Evaluation Date 05/27/19 Treatment Diagnosis s/p R TKA; difficulty in walking Onset Date 05/27/19 Weight Bearing Status Weight Bearing Status Weight Bear as Tolerated M3 PT-IP Subjective Start: 05/26/19 14:15 Freq: NEEDED Status: Active Protocol: Document 05/29/19 09:25 GGD (Rec: 05/29/19 10:48 GGD [email or web address]) Subjective Physical Therapy Visit Type Type Treatment Note Visit Start Time 08:55 Visit Stop Time 09:25 Total Visit Minutes 30 Number of FISHER TRAP Visits 4 Physical Therapy Visit Comments Patient Comments Pt states she having pain. Therapy Pain Assessment Pain When Pain Assessed During Mobility Pain Present Pain Present Pain Reported M4 PT-IP Mobility and Gait Start: 05/26/19 14:15 Freq: NEEDED Status: Active Protocol: Document 05/29/19 09:25 GGD (Rec: 05/29/19 10:48 GGD [id number]) PT-Bed Mobility Assessment Supine to Sit Supine to Sit Standby Assistance Contact Guard Assistance Sit to Supine Sit to Supine Contact Guard Assistance Bedrails Scooting Scooting to Edge of Bed Standby Assistance PT-Transfer Assessment Sit to and From Stand Sit to and from Stand Contact Guard Assistance Use of Upper Extremities Equipment Transfer Assistive Device Gait Belt Front Wheeled Walker Orthotic/Prosthetic Devices or Brace: No Transfers Transfer Destination Bed Toilet Transfer Ability Level of Assist Contact Guard Assistance Gait Assessment Gait Gait Assistance Required: Standby Assistance Distance (Feet) 60 Able to Maintain Weight Bearing Status Yes During Gait Assistive Devices Assistive Device Gait Belt Front Wheeled Walker Orthotic/Prosthetic Devices or Brace: No Gait Deviations General Gait Pattern Antalgic Decreased Stride Length Decreased Feet Clearance Factors Limiting Gait Function Factors Limiting Gait Function Decreased Activity Tolerance Decreased Strength Pain Poor Balance Poor Safety Awareness M5 PT-IP Objective Assessments Start: 05/26/19 14:15 Freq: NEEDED Status: Active Protocol: Document 05/27/19 10:02 AB (Rec: 05/27/19 13:39 AB [id number]) Orientation Orientation/Cognition Level of Alertness Alert Orientation Name Age Place Situation Language Function Ability No Deficits Noted Safety Awareness Understands Safety Issues Memory Description No Deficits Noted Gross Range of Motion Lower Extremity ROM Assessment Right Impaired Impairments R knee flexion: ~ 70 deg Strength Lower Extremity Strength Assessment Right Impaired Hip 3+/5 Knee 3+/5 Sensation Assessment Sensation Gross Sensation WNL Muscle Tone Muscle Tone WNL Yes M6 PT-IP Treatment Start: 05/26/19 14:15 Freq: NEEDED Status: Active Protocol: Document 05/29/19 09:25 GGD (Rec: 05/29/19 10:48 GGD [email or web address]) Physical Therapy Treatment Exercises Exercises Ankle Pumps Quad Sets Heel Slides Seated Knee Flexion/Extension M7 PT-IP Assessment and Plan Start: 05/26/19 14:15 Freq: NEEDED Status: Active Protocol: Document 05/29/19 09:25 GGD (Rec: 05/29/19 10:48 GGD [id number]) PT Summary Assessment and Plan Summary Assessment Summary Pt improving slowly with mobility. She is slowl moving, but safe with gait. She was able to progress gait distance with step to gait pattern. pt safe for home D/C when medically stable. Frequency of Treatment Frequency Of Treatment Twice a Day Treatment Plan Physical Therapy Treatment Plan Bed Mobility Training Transfer Training Gait Training Therapeutic Exercise Balance Retraining Post Op Education Discharge Planning Hot or Cold Pack Neuromuscular Re-ed Coordination Retraining Manual Therapy Recommendations To Nursing Amount of Assist Needed 1 Person Assist Discharge Recommendations PT Discharge Recommendations Home with Assistance Outpatient PT
--- NOTE | 2019-05-29 10:33 | CM.DPC ---
DCP: continued: I feel very ready to go home today. I plan to use this new knee to get back in the golf game. Met with pt as a check in as planned. Pt with a d/c to home order. Her neighbor is driving her to the hospital to pick her up. P: home today, OUTPT PT planned.
--- NOTE | 2019-05-29 11:18 | PC.NURSE ---
Addendum entered by Marlene Stevens R.N. 05/29/19 12:17: Pt left unit at 1216 via wheelchair in no distress with all belongings and [employer]. Pt's present with their neighbor to drive pt home. Original Note: Day Shift- Pt less anxious today compared to days past. support and encouragement provided. pt states pain better controlled and was able to sleep well last night. Right knee Aquacel dressing intact with small amount of sand spot shadowing to proximal end of dressing. CMS+, PPP, encouraged ankle pump exercises and incentive spirometer use which pt was able to demonstrate. OOB with SBA using FWW, pt does need assistance to get her RLE back into bed from a sitting position. Pt states has all belongings. Pt's home med bottle of Levothyroxine previously given back to pt 2 days ago and pt states her had taken home. Reviewed Discharge Summary packet with pt at 1030, questions answered and no further concerns. PIV removed by another RN from left FA. PRN Oxycodone 15mg given at 1110 prior to pt discharging home. Pt given prescription for Oxycontin, she usually has filled at [facility]. this caption writer gave pt options to have filled at [facility] or in [facility] pharmacies. Now awaiting for pt's to arrive to pick pt up for discharge.
== END 2019-05-29 12:16 | disposition home or self-care (01) ==
LOC: AC 05-29 09:24 → OR 05-29 14:16
PROVIDERS: Visit Provider Orthopaedic Surgery
PROC: 0SRC0JZ Replacement of Right Knee Joint with Synthetic Substitute, Open Approach (ICD-10-PCS; CPT 27447; principal; 2019-05-26 10:45)
DX: M17.11 Unilateral primary osteoarthritis, right knee (principal); I10 Essential (primary) hypertension; E78.00 Pure hypercholesterolemia, unspecified; M19.90 Unspecified osteoarthritis, unspecified site; M11.20 Other chondrocalcinosis, unspecified site
CPT/HCPCS: 27447; 36415; 73560; 85014; 85018; 97110; 97116; 97161; 97530; C1776; C9290; J0690; J1100; J1170; J1885; J2250; J2270; J2274; J2405; J2704; J3010